=== PATIENT | female | born 1975 | race American Indian/Alaskan Native ===

== ENCOUNTER 2021-09-21 16:22 | Emergency (ER) | payer SELFPAY ==
[2021-09-21] MEDS ORDERED: ONDANSETRON 4 MG/2 ML INJ IV ONE (16:53)
[2021-09-21] MEDS ORDERED: SODIUM CHLORIDE 0.9% 1000 ML 1,000 ML IV ONE (16:53)
--- NOTE | 2021-09-21 17:22 | XRay Report ---
CHEST 1 VIEW 09/21/2021 4:59 PM INDICATION / CLINICAL INFORMATION: Lightheadedness/Dizziness. COMPARISON: None available. FINDINGS: SUPPORT DEVICES: None. HEART / MEDIASTINUM: No significant abnormality. LUNGS / PLEURA: No significant pulmonary abnormality. No significant pleural effusion. No pneumothora x. ADDITIONAL FINDINGS: No significant additional findings. IMPRESSION: 1. No acute abnormality of the chest. Signer Name: Enoc Dickens MD Signed: 09/21/2021 5:18 PM Workstation Name: [id number]
[2021-09-21 18:04] LABS: Basophils % (Auto) 0.5 % (0.0-1.8); Eosinophils % (Auto) 0.1 % (0.0-4.3); Hematocrit 39.7 % (30.3-42.9); Hemoglobin 13.7 gm/dl (10.1-14.3); Lymphocytes # (Auto) 1.9 K/mm3 (1.2-5.4); Lymphocytes % (Auto) 24.4 % (13.4-35.0); Mean Corpuscular HGB Conc 34 % (30-34); Mean Corpuscular Volume 94 fl (79-97); Monocytes # (Auto) 0.2 K/mm3 (0.0-0.8); Monocytes % (Auto) 3.1 % (0.0-7.3); Red Blood Count 4.22 M/mm3 (3.65-5.03); Red Cell Distribution Width 14.3 % (13.2-15.2)
[2021-09-21] MEDS ORDERED: METOCLOPRAMIDE 10 MG/2 ML INJ IV ONE (18:07)
[2021-09-21] MEDS ORDERED: METOCLOPRAMIDE 10 MG/2 ML INJ ONE (18:08)
[2021-09-21 18:12] LABS: Platelet Count 88 K/mm3 (140-440)
[2021-09-21 18:18] LABS: Creatine Kinase MB 1.2 ng/mL (0.0-4.0)
[2021-09-21 18:19] LABS: Alanine Aminotransferase 43 units/L (7-56); Albumin 4.8 g/dL (3.9-5); Blood Urea Nitrogen 13 mg/dL (7-17); Calcium 9.8 mg/dL (8.4-10.2); Hemolysis Index 6
[2021-09-21 18:25] LABS: BUN/Creatinine Ratio 22
[2021-09-21] MEDS ORDERED: POTASSIUM CHLORIDE ER 20 MEQ TAB PO ONE (18:28)
[2021-09-21] MEDS ORDERED: INSULIN REGULAR, HUMAN 100 UNITS/1 ML IV ONE (18:28)
--- NOTE | 2021-09-21 18:46 | Emergency Department Report ---
ED General Adult HPI - General Chief complaint: Hyperglycemia Stated complaint: hyperglycemia Time Seen by Provider: 09/21/21 16:53 Source: patient, EMS Mode of arrival: Stretcher Limitations: No Limitations - History of Present Illness Initial comments: Pt brought in by EMS with c/o hyperglycemia and urinary incontinence. -: Gradual, hour(s) Location: abdomen Severity scale (0 -10): 2 Worsens with: none Associated Symptoms: denies other symptoms - Related Data Home Medications Medication Instructions Recorded Confirmed Last Taken Sulfamethoxazole/Trimethoprim 1 each PO BID 06/25/13 06/25/13 06/24/13 [Bactrim DS] Previous Rx's Medication Instructions Recorded Last Taken Type Hydrocodone Bit/Acetaminophen 1 each PO Q6H PRN #8 tablet 06/25/13 Unknown Rx [Lortab 5-500 Tablet] HYDROcodone/APAP 10-325 [[place] 1 each PO Q8HR PRN #21 tablet 03/02/15 Unknown Rx 10/325] Ibuprofen [Motrin 800 MG tab] 800 mg PO Q8HR #90 tablet 03/02/15 Unknown Rx Prednisone [predniSONE 10 mg 10 mg PO .TAPER #1 tab.ds.pk 03/02/15 Unknown Rx (6-Day Pack, 21 Tabs)] Acetaminophen/Codeine [Tylenol #3] 1 tab PO Q6H PRN #15 tab 06/04/15 Unknown Rx Cyclobenzaprine [Flexeril 10 MG 10 mg PO TID PRN #12 tablet 06/04/15 Unknown Rx TAB] Cyclobenzaprine HCl [Flexeril 5 MG 5 mg PO Q8HR #15 tablet 06/20/15 Unknown Rx TAB] Ibuprofen [Motrin 800 MG tab] 800 mg PO Q8HR PRN #30 tablet 06/20/15 Unknown Rx traMADoL [Ultram 50 MG tab] 50 mg PO Q6HR PRN #20 tablet 06/20/15 Unknown Rx Dicyclomine [Bentyl] 20 mg PO Q6H PRN #24 tablet 09/22/21 Unknown Rx Famotidine [Pepcid] 20 mg PO BID #30 tablet 09/22/21 Unknown Rx Ondansetron [Zofran Odt] 4 mg PO Q6HR PRN #20 tab.rapdis 09/22/21 Unknown Rx Promethazine [Phenergan] 25 mg [place] Q6HR PRN #20 supp.rect 09/22/21 Unknown Rx Allergies Allergy/AdvReac Type Severity Reaction Status Date / Time No Known Allergies Allergy Verified 06/20/15 15:29 ED Review of Systems ROS: Stated complaint: hyperglycemia Other details as noted in HPI Constitutional: denies: chills, fever Eyes: denies: eye pain, eye discharge, vision change ENT: denies: ear pain, throat pain Respiratory: denies: cough, shortness of breath, wheezing Cardiovascular: denies: chest pain, palpitations Endocrine: no symptoms reported Gastrointestinal: denies: abdominal pain, nausea, diarrhea Genitourinary: denies: urgency, dysuria, discharge Musculoskeletal: denies: back pain, joint swelling, arthralgia Skin: denies: rash, lesions Neurological: denies: headache, weakness, paresthesias Psychiatric: denies: anxiety, depression Hematological/Lymphatic: denies: easy bleeding, easy bruising ED Past Medical Hx - Past Medical History Hx Diabetes: Yes Additional medical history: sciatica - Surgical History Additional Surgical History: Right shoulder surgery - Social History Smoking Status: Never Smoker Substance Use Type: None - Medications Home Medications: Home Medications Medication Instructions Recorded Confirmed Last Taken Type Hydrocodone Bit/Acetaminophen 1 each PO Q6H PRN #8 tablet 06/25/13 Unknown Rx [Lortab 5-500 Tablet] Sulfamethoxazole/Trimethoprim 1 each PO BID 06/25/13 06/25/13 06/24/13 History [Bactrim DS] HYDROcodone/APAP 10-325 [[place] 1 each PO Q8HR PRN #21 tablet 03/02/15 Unknown Rx 10/325] Ibuprofen [Motrin 800 MG tab] 800 mg PO Q8HR #90 tablet 03/02/15 Unknown Rx Prednisone [predniSONE 10 mg 10 mg PO .TAPER #1 tab.ds.pk 03/02/15 Unknown Rx (6-Day Pack, 21 Tabs)] Acetaminophen/Codeine [Tylenol #3] 1 tab PO Q6H PRN #15 tab 06/04/15 Unknown Rx Cyclobenzaprine [Flexeril 10 MG 10 mg PO TID PRN #12 tablet 06/04/15 Unknown Rx TAB] Cyclobenzaprine HCl [Flexeril 5 MG 5 mg PO Q8HR #15 tablet 06/20/15 Unknown Rx TAB] Ibuprofen [Motrin 800 MG tab] 800 mg PO Q8HR PRN #30 tablet 06/20/15 Unknown Rx traMADoL [Ultram 50 MG tab] 50 mg PO Q6HR PRN #20 tablet 06/20/15 Unknown Rx Dicyclomine [Bentyl] 20 mg PO Q6H PRN #24 tablet 09/22/21 Unknown Rx Famotidine [Pepcid] 20 mg PO BID #30 tablet 09/22/21 Unknown Rx Ondansetron [Zofran Odt] 4 mg PO Q6HR PRN #20 tab.rapdis 09/22/21 Unknown Rx Promethazine [Phenergan] 25 mg [place] Q6HR PRN #20 supp.rect 09/22/21 Unknown Rx ED Physical Exam - General Limitations: No Limitations General appearance: alert, in no apparent distress - Head Head exam: Present: atraumatic, normocephalic - Eye Eye exam: Present: normal appearance - ENT ENT exam: Present: mucous membranes moist - Neck Neck exam: Present: normal inspection - Respiratory Respiratory exam: Present: normal lung sounds bilaterally. Absent: respiratory distress - Cardiovascular Cardiovascular Exam: Present: regular rate, normal rhythm. Absent: systolic murmur, diastolic murmur, rubs, gallop - GI/Abdominal GI/Abdominal exam: Present: soft, normal bowel sounds - Extremities Exam Extremities exam: Present: normal inspection - Back Exam Back exam: Present: normal inspection - Neurological Exam Neurological exam: Present: alert, oriented X3 - Psychiatric Psychiatric exam: Present: normal affect, normal mood - Skin Skin exam: Present: warm, dry, intact, normal color. Absent: rash ED Course Vital Signs 09/21/21 09/21/21 09/21/21 16:27 19:15 19:20 Temperature 98.8 F 98 F Pulse Rate 82 82 Respiratory 16 20 22 Rate Blood Pressure 155/90 134/78 [Right] O2 Sat by Pulse 98 100 100 Oximetry - Reevaluation(s) Reevaluation #1: 09/21/21 18:45 work up shwod no acidosis no gap, fluids given and insulin reglan given vss no distress ED Medical Decision Making - Lab Data Result diagrams: 09/21/21 17:01 09/21/21 17:01 Critical care attestation.: If time is entered above; I have spent that time in minutes in the direct care of this critically ill patient, excluding procedure time. ED Disposition Clinical Impression: Hyperglycemia, Gastroparesis Disposition: 01 HOME / SELF CARE / HOMELESS Is pt being admited?: No Does the pt Need Aspirin: No Condition: Stable Instructions: Hyperglycemia, [id number], Gastroparesis Referrals: PRIMARY CARE,MD [Primary Care Provider] - 3-5 Days
[2021-09-21] MEDS ORDERED: MORPHINE 4 MG/1 ML INJ IV ONE (18:52)
[2021-09-21] MEDS ORDERED: ONDANSETRON 4 MG/2 ML INJ ONE (18:59)
[2021-09-21 21:03] VITALS: BP 134/78
== END 2021-09-21 19:20 | disposition home or self-care (01) ==
LOC: ED 16:22
DX: E11.65 Type 2 diabetes mellitus with hyperglycemia (principal); E11.43 Type 2 diabetes mellitus with diabetic autonomic (poly)neuropathy; K31.84 Gastroparesis; Z79.899 Other long term (current) drug therapy
CPT/HCPCS: 36415; 71045; 80053; 82550; 82553; 82962; 84484; 85025; 96361; 96374; 96375; 99284; J2270; J2405; J2765; J7030; 80320; Q0162; G0480

== ENCOUNTER 2021-09-21 20:20 | Emergency (ER) | payer SELFPAY ==
[2021-09-21] MEDS ORDERED: METOCLOPRAMIDE 10 MG/2 ML INJ IV ONE (21:47)
[2021-09-21] MEDS ORDERED: diphenhydrAMINE 50 MG/ML VIAL IV ONE (21:47)
[2021-09-21] MEDS ORDERED: FAMOTIDINE 20 MG/2 ML INJ IV ONE (21:48)
[2021-09-21] MEDS ORDERED: SODIUM CHLORIDE 0.9% 1000 ML 1,000 ML IV ONE ×2 (21:49→23:12)
[2021-09-21 22:01] LABS: Basophils # (Auto) 0.1 K/mm3 (0.0-0.1); Basophils % (Auto) 0.7 % (0.0-1.8); Hematocrit 40.7 % (30.3-42.9); Hemoglobin 13.3 gm/dl (10.1-14.3); Mean Corpuscular HGB Conc 33 % (30-34); Mean Corpuscular Volume 95 fl (79-97); Monocytes # (Auto) 0.3 K/mm3 (0.0-0.8); Monocytes % (Auto) 3.4 % (0.0-7.3); Red Blood Count 4.28 M/mm3 (3.65-5.03); Red Cell Distribution Width 14.2 % (13.2-15.2)
[2021-09-21 22:06] LABS: Platelet Count 61 K/mm3 (140-440)
[2021-09-21 22:18] LABS: Alanine Aminotransferase 43 units/L (7-56); Albumin 4.8 g/dL (3.9-5); Blood Urea Nitrogen 13 mg/dL (7-17); Calcium 9.3 mg/dL (8.4-10.2); Hemolysis Index 15
[2021-09-21 22:35] LABS: BUN/Creatinine Ratio 22
[2021-09-22 00:56] LABS: Bilirubin,Urine NEG (Negative); Blood,Urine NEG (Negative); Color,Urine Straw (Yellow); Mucus,Urine FEW /HPF; Protein,Urine <15 mg/dL mg/dL (Negative); RBC,Urine < 1.0 /HPF (0.0-6.0); Urobilinogen,Urine < 2.0 mg/dL (<2.0); WBC,Urine < 1.0 /HPF (0.0-6.0)
--- NOTE | 2021-09-22 01:47 | Emergency Department Report ---
ED N/V/D HPI - General Chief complaint: Nausea/Vomiting/Diarrhea Stated complaint: PT UNSURE OF REASON Time Seen by Provider: 09/21/21 22:48 Source: patient Mode of arrival: Ambulatory Limitations: No Limitations - History of Present Illness Initial comments: Patient is a 45-year-old -[place] female with a history of [id number] diabetes, gastroparesis and chronic low back pain with sciatica presents to the ED with complaint of acute onset persistent intractable nausea and vomiting for the last 2 days, worse in the last 12 hours. Patient states that she has no been able to keep anything down due to intractable nausea and vomiting. Patient states that she was initially evaluated in this ED and discharged home about 3 hours ago but signed in back to the ED for further evaluation stating that the nausea and vomiting was not well controlled. Patient states that she thinks that she may be in DKA. Patient denies abdominal pain, chest pain, shortness of breath, dysuria, urinary frequency and urgency, vaginal bleeding, vaginal discharge, fever, chills, cough, sore throat, headache or dizziness and syncope. MD complaint: nausea, vomiting -: Sudden, days(s) (2) Description of Vomiting: food contents, watery Associated Abdominal Pain: No Location: diffuse Radiation: none Severity: moderate Pain Scale: 3 Quality: aching, dull Consistency: intermittent Improves with: none Worsens with: eating, vomiting Context: other (Chronic diabetic gastroparesis) Associated Symptoms: denies other symptoms, loss of appetite, malaise, nausea/vomiting. denies: myalgias, chest pain, cough, diaphoresis, fever/chills, headaches, rash, dysuria, shortness of breath, syncope, weakness, other - Related Data Home Medications Medication Instructions Recorded Confirmed Last Taken Sulfamethoxazole/Trimethoprim 1 each PO BID 06/25/13 06/25/13 06/24/13 [Bactrim DS] Previous Rx's Medication Instructions Recorded Last Taken Type Hydrocodone Bit/Acetaminophen 1 each PO Q6H PRN #8 tablet 06/25/13 Unknown Rx [Lortab 5-500 Tablet] HYDROcodone/APAP 10-325 [[place] 1 each PO Q8HR PRN #21 tablet 03/02/15 Unknown Rx 10/325] Ibuprofen [Motrin 800 MG tab] 800 mg PO Q8HR #90 tablet 03/02/15 Unknown Rx Prednisone [predniSONE 10 mg 10 mg PO .TAPER #1 tab.ds.pk 03/02/15 Unknown Rx (6-Day Pack, 21 Tabs)] Acetaminophen/Codeine [Tylenol #3] 1 tab PO Q6H PRN #15 tab 06/04/15 Unknown Rx Cyclobenzaprine [Flexeril 10 MG 10 mg PO TID PRN #12 tablet 06/04/15 Unknown Rx TAB] Cyclobenzaprine HCl [Flexeril 5 MG 5 mg PO Q8HR #15 tablet 06/20/15 Unknown Rx TAB] Ibuprofen [Motrin 800 MG tab] 800 mg PO Q8HR PRN #30 tablet 06/20/15 Unknown Rx traMADoL [Ultram 50 MG tab] 50 mg PO Q6HR PRN #20 tablet 06/20/15 Unknown Rx Dicyclomine [Bentyl] 20 mg PO Q6H PRN #24 tablet 09/22/21 Unknown Rx Famotidine [Pepcid] 20 mg PO BID #30 tablet 09/22/21 Unknown Rx Ondansetron [Zofran Odt] 4 mg PO Q6HR PRN #20 tab.rapdis 09/22/21 Unknown Rx Promethazine [Phenergan] 25 mg [place] Q6HR PRN #20 supp.rect 09/22/21 Unknown Rx Allergies Allergy/AdvReac Type Severity Reaction Status Date / Time No Known Allergies Allergy Verified 06/20/15 15:29 ED Review of Systems ROS: Stated complaint: PT UNSURE OF REASON Other details as noted in HPI Constitutional: malaise, weakness. denies: chills, fever Eyes: denies: eye pain, eye discharge, vision change ENT: denies: ear pain, throat pain Respiratory: denies: cough, shortness of breath, wheezing Cardiovascular: denies: chest pain, palpitations Endocrine: no symptoms reported Gastrointestinal: nausea, vomiting. denies: abdominal pain, diarrhea Genitourinary: denies: urgency, dysuria, discharge Musculoskeletal: denies: back pain, joint swelling, arthralgia Skin: denies: rash, lesions Neurological: denies: headache, weakness, paresthesias Psychiatric: denies: anxiety, depression Hematological/Lymphatic: denies: easy bleeding, easy bruising ED Past Medical Hx - Past Medical History Previous Medical History?: Yes Hx Diabetes: Yes Additional medical history: sciatica. Gastroparesis - Surgical History Past Surgical History?: Yes Additional Surgical History: Right shoulder surgery - Social History Smoking Status: Unknown if ever smoked - Medications Home Medications: Home Medications Medication Instructions Recorded Confirmed Last Taken Type Hydrocodone Bit/Acetaminophen 1 each PO Q6H PRN #8 tablet 06/25/13 Unknown Rx [Lortab 5-500 Tablet] Sulfamethoxazole/Trimethoprim 1 each PO BID 06/25/13 06/25/13 06/24/13 History [Bactrim DS] HYDROcodone/APAP 10-325 [[place] 1 each PO Q8HR PRN #21 tablet 03/02/15 Unknown Rx 10/325] Ibuprofen [Motrin 800 MG tab] 800 mg PO Q8HR #90 tablet 03/02/15 Unknown Rx Prednisone [predniSONE 10 mg 10 mg PO .TAPER #1 tab.ds.pk 03/02/15 Unknown Rx (6-Day Pack, 21 Tabs)] Acetaminophen/Codeine [Tylenol #3] 1 tab PO Q6H PRN #15 tab 06/04/15 Unknown Rx Cyclobenzaprine [Flexeril 10 MG 10 mg PO TID PRN #12 tablet 06/04/15 Unknown Rx TAB] Cyclobenzaprine HCl [Flexeril 5 MG 5 mg PO Q8HR #15 tablet 06/20/15 Unknown Rx TAB] Ibuprofen [Motrin 800 MG tab] 800 mg PO Q8HR PRN #30 tablet 06/20/15 Unknown Rx traMADoL [Ultram 50 MG tab] 50 mg PO Q6HR PRN #20 tablet 06/20/15 Unknown Rx Dicyclomine [Bentyl] 20 mg PO Q6H PRN #24 tablet 09/22/21 Unknown Rx Famotidine [Pepcid] 20 mg PO BID #30 tablet 09/22/21 Unknown Rx Ondansetron [Zofran Odt] 4 mg PO Q6HR PRN #20 tab.rapdis 09/22/21 Unknown Rx Promethazine [Phenergan] 25 mg [place] Q6HR PRN #20 supp.rect 09/22/21 Unknown Rx ED Physical Exam - General Limitations: No Limitations General appearance: alert, in no apparent distress - Head Head exam: Present: atraumatic, normocephalic, normal inspection - Eye Eye exam: Present: normal appearance, PERRL, EOMI Pupils: Present: normal accommodation - ENT ENT exam: Present: normal exam, normal orophraynx, mucous membranes moist, TM's normal bilaterally, normal external ear exam - Neck Neck exam: Present: normal inspection, full ROM - Respiratory Respiratory exam: Present: normal lung sounds bilaterally. Absent: respiratory distress, wheezes, rales, rhonchi, chest wall tenderness, accessory muscle use, decreased breath sounds, other - Cardiovascular Cardiovascular Exam: Present: regular rate, normal rhythm, normal heart sounds. Absent: systolic murmur, diastolic murmur, rubs, gallop - GI/Abdominal GI/Abdominal exam: Present: soft, normal bowel sounds. Absent: tenderness, g uarding, rebound, hyperactive bowel sounds, hypoactive bowel sounds, organomegaly, mass - Extremities Exam Extremities exam: Present: normal inspection, full ROM, normal capillary refill. Absent: tenderness - Back Exam Back exam: Present: normal inspection, full ROM. Absent: tenderness, CVA tenderness (R), muscle spasm, paraspinal tenderness, vertebral tenderness - Neurological Exam Neurological exam: Present: alert, oriented X3, CN II-XII intact, normal gait, reflexes normal - Psychiatric Psychiatric exam: Present: normal affect, normal mood - Skin Skin exam: Present: warm, dry, intact, normal color. Absent: rash ED Course Vital Signs 09/21/21 20:54 Temperature 97.3 F L Pulse Rate 58 L Respiratory 18 Rate Blood Pressure 164/72 [Right] O2 Sat by Pulse 100 Oximetry ED Medical Decision Making - Lab Data Result diagrams: 09/21/21 21:50 09/21/21 21:50 - Medical Decision Making This is a 45-year-old -[place] female with a history of vij-hewakui-jvgclajde diabetes, gastroparesis and chronic low back pain with sciatica presents to the ED with complaint of acute onset persistent intractable nausea and vomiting for the last 2 days, worse in the last 12 hours. Patient states that she has no been able to keep anything down due to intractable nausea and vomiting. Patient states that she was initially evaluated in this ED and discharged home about 3 hours ago but signed in back to the ED for further eval uation stating that the nausea and vomiting was not well controlled. Patient states that she thinks that she may be in DKA. In the ED, patient is alert and oriented x3 and is not in any distress. Patient was treated in the ED with antiemetics, also given antacids as well as 2 L of normal saline IV bolus x1. Lab test results were reviewed and showed hyperglycemia of 390 mg/dL. Rest of the lab test results were nonactionable. After administration of 2 L of normal saline IV bolus with antiemetics. Patient's vbwxw-nj-kwax glucose was 280 mg/dL. Patient was therefore discharged home on antiemetics and advised to follow-up with her primary care physician in 3 to 5 days for reevaluation. P atient was advised to maintain a clear liquid diet for 12 to 24 hours while taking medications as needed for nausea and vomiting. - Differential Diagnosis Dehydration; gastroparesis; hyperglycemia; GERD; gastroenteritis Critical care attestation.: If time is entered above; I have spent that time in minutes in the direct care of this critically ill patient, excluding procedure time. ED Disposition Clinical Impression: Intractable nausea and vomiting Hyperglycemia due to type 2 diabetes mellitus Qualifiers: Diabetes mellitus senior care insulin use: without senior care use Qualified Code(s): E11.65 - Type 2 diabetes mellitus with hyperglycemia Disposition: 01 HOME / SELF CARE / HOMELESS Is pt being admited?: No Does the pt Need Aspirin: No Condition: Stable Instructions: Diabetes Mellitus Type 2 in Adults (ED), Type 2 Diabetes Mellitus, Self Care, Adult, [id number], Nausea and Vomiting, Adult, [id number] Additional Instructions: All lab test results were reviewed and are all nonactionable. There is no evidence of DKA at this time. Your blood sugar is well controlled at this time with 2 L of normal saline IV that was given and also the antiemetics that were given in the ED. Therefore maintain a clear liquid diet for 12 to 24 hours, drink plenty of fluids, take medication as needed for nausea and vomiting, the antacid and the pain medication. Follow-up with your primary care physician in 5 to 7 days for reevaluation or return to the ED immediately if symptoms get worse. Prescriptions: Dicyclomine [Bentyl] 20 mg PO Q6H PRN #24 tablet PRN Reason: Pain , Severe (7-10) Famotidine [Pepcid] 20 mg PO BID #30 tablet Promethazine [Phenergan] 25 mg [place] Q6HR PRN #20 supp.rect PRN Reason: Nausea Ondansetron [Zofran Odt] 4 mg PO Q6HR PRN #20 tab.rapdis PRN Reason: Nausea Referrals: [facility] [Provider Group] - 3-5 Days Time of Disposition: 01:48 Print Language: ETHIOPIAN
[2021-09-22] MEDS ORDERED: PROCHLORPERAZINE EDISYLATE 10 MG/2 ML VIAL IV ONE (01:53)
[2021-09-22 07:50] VITALS: BP 129/87
== END 2021-09-22 05:00 | disposition home or self-care (01) ==
LOC: ED 20:20
DX: E11.65 Type 2 diabetes mellitus with hyperglycemia (principal); R11.2 Nausea with vomiting, unspecified; K31.84 Gastroparesis; Z98.890 Other specified postprocedural states
CPT/HCPCS: 36415; 80053; 81001; 82962; 83690; 84703; 85025; 96361; 96374; 96375; 99283; J0780; J1200; J2765; J3490; J7030; Q0162

== ENCOUNTER 2021-09-28 12:06 | Emergency (ER) | payer SELFPAY ==
[2021-09-28] MEDS ORDERED: DICYCLOMINE 20 MG/2 ML INJ IM ONE (14:34)
[2021-09-28] MEDS ORDERED: FAMOTIDINE 20 MG TAB PO ONE (14:34)
[2021-09-28] MEDS ORDERED: METOCLOPRAMIDE 10 MG/2 ML INJ IV ONE (14:34)
[2021-09-28] MEDS ORDERED: SODIUM CHLORIDE 0.9% 1000 ML 2,000 ML IV ONE (14:34)
--- NOTE | 2021-09-28 14:35 | Emergency Department Report ---
ED N/V/D HPI - General Chief complaint: Abdominal Pain Stated complaint: STOMACH PAIN Time Seen by Provider: 09/28/21 14:19 Source: patient, old records reviewed Mode of arrival: Ambulatory Limitations: No Limitations - History of Present Illness Initial comments: 45-year-old female with past medical history of diabetes and gastroparesis presents to the ER today with complaints of nausea, vomiting and epigastric pain. Patient states that her symptoms has been ongoing for the past 2 weeks. Patient states that she was seen in the ER here for symptoms. She states that she was prescribed Phenergan suppositories, Zofran and another medication she states that they have not been helping. Patient states that she has been compliant with her insulin but as sugars still have not been under good control. She currently does not have a primary care doctor. She states that she does not have insurance and is unable to afford visits. She denies any bowel changes. She denies any UTI symptoms. She denies any fever or chills. Last menstrual cycle was September 18. She denies any chest pain or shortness of breath. She has never had any abdominal surgeries. MD complaint: nausea, vomiting, abdominal pain - Related Data Previous Rx's Medication Instructions Recorded Last Taken Type Famotidine [Pepcid] 20 mg PO BID #30 tablet 09/22/21 Unknown Rx Famotidine [Pepcid] 20 mg PO BID #60 tablet 09/28/21 Unknown Rx Metoclopramide [Reglan] 10 mg PO TID PRN #20 tab 09/28/21 Unknown Rx Ondansetron [Zofran Odt] 4 mg PO Q8HR PRN #15 tab.rapdis 09/28/21 Unknown Rx Allergies Allergy/AdvReac Type Severity Reaction Status Date / Time No Known Allergies Allergy Verified 06/20/15 15:29 ED Review of Systems ROS: Stated complaint: STOMACH PAIN Other details as noted in HPI Comment: All other systems reviewed and negative Constitutional: denies: chills, fever Eyes: denies: eye pain, eye discharge, vision change ENT: denies: ear pain, throat pain Respiratory: denies: cough, shortness of breath, wheezing Gastrointestinal: abdominal pain, nausea, vomiting. denies: diarrhea, constipation, hematemesis, hematochezia Genitourinary: denies: urgency, dysuria, discharge Musculoskeletal: denies: back pain, joint swelling, arthralgia Skin: denies: rash, lesions Neurological: weakness. denies: headache, numbness, paresthesias, confusion, abnormal gait, vertigo Psychiatric: denies: anxiety, depression, auditory hallucinations, visual hallucinations, homicidal thoughts, suicidal thoughts Hematological/Lymphatic: denies: easy bleeding, easy bruising, swollen glands ED Past Medical Hx - Past Medical History Hx Diabetes: Yes Additional medical history: sciatica. Gastroparesis - Surgical History Additional Surgical History: Right shoulder surgery - Social History Smoking Status: Never Smoker Substance Use Type: None - Medications Home Medications: Home Medications Medication Instructions Recorded Confirmed Last Taken Type Famotidine [Pepcid] 20 mg PO BID #30 tablet 09/22/21 Unknown Rx Famotidine [Pepcid] 20 mg PO BID #60 tablet 09/28/21 Unknown Rx Metoclopramide [Reglan] 10 mg PO TID PRN #20 tab 09/28/21 Unknown Rx Ondansetron [Zofran Odt] 4 mg PO Q8HR PRN #15 tab.rapdis 09/28/21 Unknown Rx ED Physical Exam - General Limitations: No Limitations General appearance: alert, in distress (patient appears uncomfortable ) - Head Head exam: Present: atraumatic, normocephalic, normal inspection - Eye Eye exam: Present: normal appearance, PERRL, EOMI Pupils: Present: normal accommodation - ENT ENT exam: Present: mucous membranes moist - Neck Neck exam: Present: normal inspection, full ROM. Absent: meningismus - Respiratory Respiratory exam: Present: normal lung sounds bilaterally. Absent: respiratory distress, wheezes, rales, rhonchi - Cardiovascular Cardiovascular Exam: Present: regular rate, normal rhythm, normal heart sounds - GI/Abdominal GI/Abdominal exam: Present: soft, tenderness (Epigastric ). Absent: distended, guarding, rebound - Neurological Exam Neurological exam: Present: alert, oriented X3, CN II-XII intact, normal gait - Psychiatric Psychiatric exam: Present: normal affect, normal mood - Skin Skin exam: Present: intact ED Course Vital Signs 09/28/21 09/28/21 12:57 20:44 Temperature 98.4 F 98.8 F Pulse Rate 64 90 Respiratory 18 18 Rate Blood Pressure 155/75 158/88 [Right] O2 Sat by Pulse 97 99 Oximetry ED Medical Decision Making - Lab Data Result diagrams: 09/28/21 16:38 09/28/21 16:38 - Radiology Data Radiology results: report reviewed Patient: YOAV SMITH MR#: [id number] : 1975 Acct:[id number] Age/Sex: 45 / F ADM Date: 09/28/21 Loc: ED Attending Dr: Ordering Physician: ELSIE BEAR Date of Service: 09/28/21 Procedure(s): US abdomen limited Accession Number(s): [id number] cc: ELSIE BEAR ULTRASOUND ABDOMEN, LIMITED (RIGHT UPPER QUADRANT) INDICATION: Epigastric pain. COMPARISON: None available. FINDINGS: Pancreas: Visualized portion shows no significant abnormality. Liver: Normal in size. Generalized increased echotexture. No focal lesions. Normal portal venous flow. Gallbladder: Incompletely distended. No pericholecystic fluid. The gallbladder wall does not appear abnormally thickened given under distention. No shadowing stones. Sonographic Barillas's sign: Not performed. Bile ducts: No significant abnormality. Common Bile Duct measures 1.7 mm. Free fluid: None. Additional Findings: None. IMPRESSION: 1. No acute abnormality to explain the patient's pain. 2. Increased hepatic echotexture, most commonly representing steatosis. Signer Name: Enoc Dickens MD Signed: 09/28/2021 4:57 PM Workstation Name: [id number] Transcribed By: SHEILA Dictated By: Enoc Dickens MD Electronically Authenticated By: Enoc Dickens MD Signed Date/Time: 09/28/211656 DD/ 54 TD/TT: - Medical Decision Making Patient appears to be feeling better after 2 L IV fluids, reglan and 8 mg IV zofran. Her BS was elevated during stay but improved after IV fluids and insulin. No evidence of DKA or significant abnormality on labs and GB US was normal. Her VS were stable. At this time there is no indication for additional testing, continued emergent treatment or admission. Discussed all results with patient. She will be given rx for antemetics. She reports she has a GI specialist and has appt with them next week. Also recommend she f/u with her PCP and a engraver ornamental design for better controll of her BS. Pt expressed understanding of instructions and was stable at time of discharge. Critical care attestation.: If time is entered above; I have spent that time in minutes in the direct care of this critically ill patient, excluding procedure time. ED Disposition Clinical Impression: Gastroparesis, Hyperglycemia due to type 2 diabetes mellitus, Epigastric pain, Nausea & vomiting Disposition: 01 HOME / SELF CARE / HOMELESS Is pt being admited?: No Does the pt Need Aspirin: No Condition: Stable Instructions: Nausea and Vomiting, Adult, [id number], Type 2 Diabetes Mellitus, Self Care, Adult, [id number], Gastroparesis, Diabetes Mellitus Type 2 in Adults (ED), Abdominal Pain (ED) Additional Instructions: Recommend that you take the Reglan and the Zofran as prescribed to help with nausea and vomiting. Take the Pepcid as prescribed. I recommend that you continue taking your insulin but you should follow-up with a primary care doctor and an engraver ornamental design to help you better control your diabetes. Also recommend follow-up with the GI specialist. increase your water intake. Return to the ER if your symptoms changes or worsens in any way. Prescriptions: Famotidine [Pepcid] 20 mg PO BID #60 tablet Metoclopramide [Reglan] 10 mg PO TID PRN #20 tab PRN Reason: Vomiting Ondansetron [Zofran Odt] 4 mg PO Q8HR PRN #15 tab.rapdis PRN Reason: Vomiting Referrals: MARA MACKEY MD [Primary Care Provider] - 3-5 Days Time of Disposition: 20:18
[2021-09-28 16:57] LABS: Basophils # (Auto) 0.1 K/mm3 (0.0-0.1); Basophils % (Auto) 0.7 % (0.0-1.8); Eosinophils % (Auto) 0.1 % (0.0-4.3); Hemoglobin 14.3 gm/dl (10.1-14.3); Lymphocytes # (Auto) 2.2 K/mm3 (1.2-5.4); Lymphocytes % (Auto) 24.5 % (13.4-35.0); Mean Corpuscular HGB Conc 34 % (30-34); Mean Corpuscular Volume 95 fl (79-97); Monocytes # (Auto) 0.3 K/mm3 (0.0-0.8); Monocytes % (Auto) 3.1 % (0.0-7.3); Red Blood Count 4.41 M/mm3 (3.65-5.03); Red Cell Distribution Width 13.6 % (13.2-15.2)
[2021-09-28 16:58] LABS: Platelet Count 76 K/mm3 (140-440)
--- NOTE | 2021-09-28 17:02 | Ultrasound Report ---
ULTRASOUND ABDOMEN, LIMITED (RIGHT UPPER QUADRANT) INDICATION: Epigastric pain. COMPARISON: None available. FINDINGS: Pancreas: Visualized portion shows no significant abnormality. Liver: Normal in size. Generalized increased echotexture. No focal lesions. Normal portal venous flow . Gallbladder: Incompletely distended. No pericholecystic fluid. The gallbladder wall does not appear a bnormally thickened given under distention. No shadowing stones. Sonographic Barillas's sign: Not perfo rmed. Bile ducts: No significant abnormality. Common Bile Duct measures 1.7 mm. Free fluid: None. Additional Findings: None. IMPRESSION: 1. No acute abnormality to explain the patient's pain. 2. Increased hepatic echotexture, most commonly representing steatosis. Signer Name: Enoc Dickens MD Signed: 09/28/2021 4:57 PM Workstation Name: [id number]
[2021-09-28 17:15] LABS: Alanine Aminotransferase 38 units/L (7-56); Albumin 5.1 g/dL (3.9-5); Blood Urea Nitrogen 6 mg/dL (7-17); Calcium 9.5 mg/dL (8.4-10.2); Hemolysis Index 17
[2021-09-28 17:19] LABS: BUN/Creatinine Ratio 10
[2021-09-28] MEDS ORDERED: ONDANSETRON 4 MG/2 ML INJ IV ONE ×2 (18:37→20:25)
[2021-09-28] MEDS ORDERED: INSULIN REGULAR, HUMAN 100 UNITS/1 ML IV ONE (18:37)
[2021-09-28 19:06] LABS: Bilirubin,Urine NEG (Negative); Blood,Urine NEG (Negative); Color,Urine Yellow (Yellow); Mucus,Urine FEW /HPF; Urobilinogen,Urine < 2.0 mg/dL (<2.0)
[2021-09-28 20:45] VITALS: BP 158/88
== END 2021-09-28 20:44 | disposition home or self-care (01) ==
LOC: ED 12:06
DX: E11.43 Type 2 diabetes mellitus with diabetic autonomic (poly)neuropathy (principal); K31.84 Gastroparesis; E11.65 Type 2 diabetes mellitus with hyperglycemia; R10.13 Epigastric pain; R11.2 Nausea with vomiting, unspecified; Z79.899 Other long term (current) drug therapy
CPT/HCPCS: 36415; 76705; 80053; 81001; 82962; 83690; 85025; 96361; 96372; 96374; 96375; 96376; 99284; J0500; J2405; J2765; J7030; Q0162; Q9967; J1815